=== PATIENT | male | born 1945 | race Caucasian/White ===

== ENCOUNTER 2021-04-11 09:03 | Inpatient (IN) | payer MEDICARE, OTHER ==
[2021-04-11 10:22] LABS: ALT (SGPT) 22 U/L (8-55); AST (SGOT) 23 U/L (5-34); Albumin 3.6 g/dL (3.4-4.8); Alkaline Phosphatase 60 U/L (40-110); Anion Gap 18 mmol/L (10-20); BUN (Urea Nitrogen) 21 mg/dL (8.4-25.7); Bilirubin, Total 0.6 mg/dL (0.2-1.2); Calc. Creatinine Clearance 0 mL/min (70-130); Carbon Dioxide 19 mmol/L (23-31); Chloride 106 mmol/L (98-107); Globulin 2.2 g/dL (2.4-3.5); Glucose 203 mg/dL (83-110); Potassium 4.3 mmol/L (3.5-5.1); Protein, Total 5.8 g/dL (5.8-8.1); Sodium 139 mmol/L (136-145)
[2021-04-11 10:29] LABS: #Lymphocytes 0.8 thou/uL (1.20-3.40); #Monocytes 0.7 thou/uL (0.11-0.59); #Neutrophils 14.2 thou/uL (1.40-6.50); %Basophils 0.1 % (0.0-1.0); %Eosinophils 0.2 % (0.0-10.0); %Monocytes 4.3 % (0.0-10.0); %Neutrophils 90.3 % (42.0-75.0); Band 31 % (5-11); Hemoglobin 11.2 g/dL (14.0-18.0); Lymphocytes 3 % (21-51); MDiff Complete? YES; Mean Corpuscular HGB CONC 33.1 g/dL (32.0-36.0); Mean Corpuscular Hemoglobin 32.3 pg (27.0-31.0); Mean Corpuscular Volume 97.8 fL (78.0-98.0); Mean Platelet Volume 9.9 fL (7.4-10.4); Monocytes 4 % (0-10); Neutrophil 62 % (42-75); Platelet Count 105 thou/uL (130-400); Platelet Morphology Comment Appears Decreased; RBC Distribution Width 14.2 % (11.5-14.5); RBC Morphology Normal; Red Blood Cell (RBC) Count 3.48 mill/uL (4.70-6.10); White Blood Cell (WBC) Count 15.7 thou/uL (4.8-10.8)
[2021-04-11] MEDS ORDERED: cefTRIAXone\\ROCEPHIN 2 GM VIAL ONE (11:14)
[2021-04-11] MEDS ORDERED: Cefepime 2 GM VIAL ONE (11:20)
[2021-04-11] MEDS ORDERED: Fentanyl 100 MCG/2 ML VIAL ONE ×2 (11:23→13:13)
[2021-04-11 12:09] LABS: Bilirubin Negative (Negative); Blood, Urine Negative (Negative); Clarity Clear (Clear); Glucose, Urine (Dipstick) Normal (Negative); Ketone, Urine Negative (Negative); Leukocyte Negative Leu/uL (Negative); Nitrite Negative (Negative); Protein, Urine (Dipstick) Negative (Neg-Trace); Specific Gravity, Urine 1.019 (1.002-1.036); Urobilinogen Normal mg/dL (Less than 2); pH, Urine 5.5 (5.0-9.0)
[2021-04-11] MEDS ORDERED: Clindamycin/D5W 900 MG in Premix Bag 1 BAG IVPB SCH (12:30)
[2021-04-11 13:19] LABS: Lactic Acid 4.2 mmol/L (0.5-2.2)
[2021-04-11] MEDS ORDERED: Dextrose 5% in Water 1,000 ML IV PRN (13:27)
[2021-04-11] MEDS ORDERED: hydrALAZINE 20 MG/ML VIAL SLOW IVP PRN (13:27)
[2021-04-11] MEDS ORDERED: Ondansetron PF 4 MG/2 ML Vial IVP PRN (13:27)
[2021-04-11] MEDS ORDERED: Dextrose 50% Abboject 50 ML SYRINGE SLOW IVP PRN (13:27)
[2021-04-11] MEDS ORDERED: traMADol HCl 50 MG TAB PO PRN (13:30)
[2021-04-11] MEDS ORDERED: Acetaminophen 325 MG TAB PO SCH (13:30)
[2021-04-11] MEDS ORDERED: VANCOMYCIN 2 GRAM/400 ML BAG 2 GM in Premix Bag 1 BAG IVPB SCH (14:00)
[2021-04-11 14:13] LABS: Troponin I Less than 0.010 ng/mL (< 0.028)
[2021-04-11] MEDS ORDERED: Hydrocortisone Sod Succ/PF 100 mg/2 ml Vial IVP SCH (14:15)
[2021-04-11] MEDS ORDERED: Calcium Chloride 1 GM/10 ML Abboject SYRINGE IVP SCH (14:15)
[2021-04-11] MEDS ORDERED: Calcium Chloride 13.6 MEQ in Sodium Chloride 0.9% 100 ML IVPB SCH (17:15)
[2021-04-11 17:47] LABS: Lactic Acid 3.3 mmol/L (0.5-2.2)
[2021-04-11] MEDS: Acetaminophen 500 MG TAB PO SCH ×2 (18:38→20:09)
[2021-04-11] MEDS: traMADol HCl 50 MG TAB PO SCH ×2 (18:45→23:31)
[2021-04-11 18:47] LABS: SARS-CoV-2 NAA Rapid Test Not Detected (NotDetected)
[2021-04-11] MEDS ORDERED: Albuterol Sulfate 2.5 mg/3 ml Neb NEB PRN (18:49)
[2021-04-11] MEDS: Senokot S 8.6-50 MG TAB PO SCH (20:09)
[2021-04-11] MEDS: Famotidine/PF 20 mg/2ml Vial SLOW IVP SCH (20:09)
[2021-04-11] MEDS: Sodium Chloride 0.9% 1,000 ML IV SCH (20:09)
[2021-04-11] MEDS ORDERED: Metoprolol Tartrate 50 MG TAB PO SCH (21:00)
[2021-04-11] MEDS: Hydrocortisone Sod Succ/PF 100 mg/2 ml Vial IVP SCH (22:22)
[2021-04-11] MEDS: Morphine 4 MG/ML VIAL SLOW IVP PRN (22:38)
[2021-04-12] MEDS: Acetaminophen 500 MG TAB PO SCH ×4 (02:50→21:36)
[2021-04-12 04:41] LABS: #Lymphocytes 0.7 thou/uL (1.20-3.40); #Monocytes 0.9 thou/uL (0.11-0.59); #Neutrophils 7.4 thou/uL (1.40-6.50); %Basophils 0.4 % (0.0-1.0); %Eosinophils 0.2 % (0.0-10.0); %Monocytes 9.4 % (0.0-10.0); %Neutrophils 81.9 % (42.0-75.0); Hemoglobin 7.9 g/dL (14.0-18.0); Mean Corpuscular Hemoglobin 33.1 pg (27.0-31.0); Mean Corpuscular Volume 97.2 fL (78.0-98.0); Mean Platelet Volume 9.3 fL (7.4-10.4); Platelet Count 96 thou/uL (130-400); Red Blood Cell (RBC) Count 2.39 mill/uL (4.70-6.10)
[2021-04-12 04:43] LABS: Anion Gap 12 mmol/L (10-20); BUN (Urea Nitrogen) 24 mg/dL (8.4-25.7); Calc. Creatinine Clearance 87 mL/min (70-130); Calcium 8.2 mg/dL (7.8-10.44); Carbon Dioxide 24 mmol/L (23-31); Chloride 109 mmol/L (98-107); Glucose 131 mg/dL (83-110); Magnesium 1.5 mg/dL (1.6-2.6); Phosphorus 2.7 mg/dL (2.3-4.7); Sodium 140 mmol/L (136-145)
[2021-04-12 04:48] LABS: Lactic Acid 1.9 mmol/L (0.5-2.2)
[2021-04-12 04:49] LABS: Troponin I Less than 0.010 ng/mL (< 0.028)
[2021-04-12 05:08] VITALS: BMI 29.9
[2021-04-12] MEDS ORDERED: Magnesium Sulfate 4 GM in Sodium Chloride 0.9% 250 ML 250 ML IVPB SCH (06:15)
[2021-04-12] MEDS: traMADol HCl 50 MG TAB PO SCH (06:25)
[2021-04-12] MEDS: Hydrocortisone Sod Succ/PF 100 mg/2 ml Vial IVP SCH ×3 (06:26→21:37)
[2021-04-12] MEDS: Sodium Chloride 0.9% 1,000 ML IV SCH (06:32)
[2021-04-12] MEDS: Mometasone 100 MCG/Formoterol 5 MCG 120 PUFF INHALER INH SCH ×2 (07:05→18:26)
[2021-04-12] MEDS: Morphine 4 MG/ML VIAL SLOW IVP PRN (07:21)
[2021-04-12] MEDS ORDERED: Magnesium Sulfate 4 GM in Sodium Chloride 0.9% 250 ML 250 ML IV SCH (09:00)
[2021-04-12] MEDS: Senokot S 8.6-50 MG TAB PO SCH ×2 (09:03→21:36)
[2021-04-12] MEDS: Bupropion 150 MG XL TAB PO SCH (09:03)
[2021-04-12] MEDS: Famotidine/PF 20 mg/2ml Vial SLOW IVP SCH ×2 (09:03→21:37)
[2021-04-12] MEDS: Tamsulosin HCl 0.4 MG CAP PO SCH (09:03)
[2021-04-12] MEDS: Polyethylene Glycol 3350 17 GM Packet PO SCH (09:04)
[2021-04-12] MEDS: Sodium Phosphate 15 MMOL in Sodium Chloride 0.9% 250 ML 250 ML IVPB SCH ×2 (09:10→12:31)
[2021-04-12] MEDS ORDERED: Furosemide 20 MG/2 ML VIAL SLOW IVP SCH (10:00)
[2021-04-12] MEDS ORDERED: Lorazepam 1 MG TAB PO PRN (11:33)
[2021-04-12] MEDS ORDERED: Lorazepam 1 MG TAB PO SCH ×2 (11:34→12:15)
[2021-04-12] MEDS ORDERED: Clindamycin/D5W 900 MG in Premix Bag 1 BAG IVPB SCH (13:00)
[2021-04-12] MEDS: Morphine ER 15 MG TAB PO SCH (21:39)
[2021-04-13] MEDS: Acetaminophen 500 MG TAB PO SCH ×4 (02:58→19:24)
[2021-04-13] MEDS: Hydrocortisone Sod Succ/PF 100 mg/2 ml Vial IVP SCH (05:21)
[2021-04-13] MEDS: Mometasone 100 MCG/Formoterol 5 MCG 120 PUFF INHALER INH SCH ×2 (06:55→21:27)
[2021-04-13 07:15] LABS: #Lymphocytes 0.6 thou/uL (1.20-3.40); #Monocytes 0.5 thou/uL (0.11-0.59); #Neutrophils 5.9 thou/uL (1.40-6.50); %Eosinophils 0.5 % (0.0-10.0); %Lymphocytes 8.6 % (21.0-51.0); %Neutrophils 83.9 % (42.0-75.0); Hemoglobin 7.5 g/dL (14.0-18.0); Mean Corpuscular HGB CONC 34.6 g/dL (32.0-36.0); Mean Corpuscular Hemoglobin 33.7 pg (27.0-31.0); Mean Corpuscular Volume 97.4 fL (78.0-98.0); Mean Platelet Volume 9.8 fL (7.4-10.4); Platelet Count 87 thou/uL (130-400); RBC Distribution Width 14.2 % (11.5-14.5); Red Blood Cell (RBC) Count 2.23 mill/uL (4.70-6.10); White Blood Cell (WBC) Count 7.1 thou/uL (4.8-10.8)
[2021-04-13 07:34] LABS: Anion Gap 10 mmol/L (10-20); BUN (Urea Nitrogen) 22 mg/dL (8.4-25.7); Calc. Creatinine Clearance 124 mL/min (70-130); Calcium 8.1 mg/dL (7.8-10.44); Carbon Dioxide 26 mmol/L (23-31); Chloride 106 mmol/L (98-107); Glucose 100 mg/dL (83-110); Magnesium 2.2 mg/dL (1.6-2.6); Phosphorus 2.2 mg/dL (2.3-4.7); Potassium 4.1 mmol/L (3.5-5.1); Sodium 138 mmol/L (136-145)
[2021-04-13] MEDS: metFORMIN 500 MG TAB PO SCH (08:32)
[2021-04-13] MEDS: Morphine ER 15 MG TAB PO SCH (10:00)
[2021-04-13] MEDS: Bupropion 150 MG XL TAB PO SCH (10:53)
[2021-04-13] MEDS: Furosemide 20 MG TAB PO SCH (10:54)
[2021-04-13] MEDS: Tamsulosin HCl 0.4 MG CAP PO SCH (10:55)
[2021-04-13] MEDS: Polyethylene Glycol 3350 17 GM Packet PO SCH (10:55)
[2021-04-13] MEDS: Senokot S 8.6-50 MG TAB PO SCH ×2 (10:55→19:23)
[2021-04-13] MEDS: Ketorolac Tromethamine 30 MG/ML VIAL IVP SCH ×2 (10:59→17:37)
[2021-04-13] MEDS ORDERED: Clindamycin/D5W 900 mg/50 ml Premix Bag ONE (13:25)
[2021-04-13] MEDS ORDERED: Fentanyl 100 MCG/2 ML VIAL ONE ×2 (14:24→17:12)
[2021-04-13] MEDS ORDERED: Glycopyrrolate 0.2 MG/ML 5 ML SYRINGE ONE (14:24)
[2021-04-13] MEDS ORDERED: Ketamine 50 MG/ML (10ML VIAL) ONE (14:26)
[2021-04-13] MEDS ORDERED: Propofol 1,000 MG/100 ML VIAL IV ONE (15:45)
[2021-04-13] MEDS ORDERED: Morphine ER 15 MG TAB PO PRN (17:43)
[2021-04-13] MEDS: Clindamycin/D5W 900 MG in Premix Bag 1 BAG IVPB SCH (19:24)
[2021-04-14] MEDS: Acetaminophen 500 MG TAB PO SCH ×4 (02:26→20:28)
[2021-04-14] MEDS: Clindamycin/D5W 900 MG in Premix Bag 1 BAG IVPB SCH (05:08)
[2021-04-14 05:40] LABS: #Lymphocytes 0.4 thou/uL (1.20-3.40); #Monocytes 0.6 thou/uL (0.11-0.59); #Neutrophils 6.4 thou/uL (1.40-6.50); %Eosinophils 0.2 % (0.0-10.0); %Lymphocytes 4.8 % (21.0-51.0); %Monocytes 8.1 % (0.0-10.0); %Neutrophils 86.9 % (42.0-75.0); Hemoglobin 6.6 g/dL (14.0-18.0); Mean Corpuscular HGB CONC 34.9 g/dL (32.0-36.0); Mean Corpuscular Hemoglobin 33.7 pg (27.0-31.0); Mean Corpuscular Volume 96.5 fL (78.0-98.0); Platelet Count 95 thou/uL (130-400); RBC Distribution Width 14.2 % (11.5-14.5); Red Blood Cell (RBC) Count 1.97 mill/uL (4.70-6.10); White Blood Cell (WBC) Count 7.3 thou/uL (4.8-10.8)
[2021-04-14 05:50] LABS: Phosphorus 2.7 mg/dL (2.3-4.7)
[2021-04-14 06:08] LABS: Anion Gap 11 mmol/L (10-20); BUN (Urea Nitrogen) 25 mg/dL (8.4-25.7); Calc. Creatinine Clearance 130 mL/min (70-130); Calcium 8.1 mg/dL (7.8-10.44); Carbon Dioxide 24 mmol/L (23-31); Chloride 106 mmol/L (98-107); Glucose 136 mg/dL (83-110); Potassium 4.4 mmol/L (3.5-5.1); Sodium 137 mmol/L (136-145)
[2021-04-14] MEDS: Mometasone 100 MCG/Formoterol 5 MCG 120 PUFF INHALER INH SCH ×2 (06:43→18:17)
[2021-04-14] MEDS: Polyethylene Glycol 3350 17 GM Packet PO SCH (07:44)
[2021-04-14] MEDS: metFORMIN 500 MG TAB PO SCH (07:45)
[2021-04-14] MEDS: Senokot S 8.6-50 MG TAB PO SCH ×2 (07:46→20:29)
[2021-04-14] MEDS: Bupropion 150 MG XL TAB PO SCH (07:46)
[2021-04-14] MEDS: Furosemide 20 MG TAB PO SCH (07:46)
[2021-04-14] MEDS: Tamsulosin HCl 0.4 MG CAP PO SCH (07:48)
[2021-04-14] MEDS: Gabapentin 100 MG CAP PO SCH ×2 (13:43→20:28)
[2021-04-14 15:22] LABS: Band 11 % (5-11); Hemoglobin 8.4 g/dL (14.0-18.0); Lymphocytes 6 % (21-51); MDiff Complete? YES; Mean Corpuscular HGB CONC 33.4 g/dL (32.0-36.0); Mean Corpuscular Hemoglobin 31.6 pg (27.0-31.0); Mean Corpuscular Volume 94.6 fL (78.0-98.0); Mean Platelet Volume 10.2 fL (7.4-10.4); Monocytes 9 % (0-10); Neutrophil 74 % (42-75); Platelet Count 125 thou/uL (130-400); Platelet Morphology Comment Appears Decreased; Polychromasia SLIGHT = 2-3 cells (100X) (0-2/hpf); RBC Distribution Width 18.2 % (11.5-14.5); Red Blood Cell (RBC) Count 2.66 mill/uL (4.70-6.10); Target Cells SLIGHT = 2-5 cells (100X) (0-1/hpf); White Blood Cell (WBC) Count 10.6 thou/uL (4.8-10.8)
[2021-04-14] MEDS: Ferrous Sulfate 325 MG TAB PO SCH (16:42)
[2021-04-14] MEDS: Ascorbic Acid 500 mg Chewable Tablet PO SCH (20:28)
[2021-04-14] MEDS ORDERED: Senokot S 8.6-50 MG TAB PO SCH (21:00)
[2021-04-15] MEDS: Acetaminophen 500 MG TAB PO SCH ×3 (02:33→15:54)
[2021-04-15] MEDS: metFORMIN 500 MG TAB PO SCH (07:57)
[2021-04-15] MEDS ORDERED: Ondansetron PF 4 MG/2 ML Vial IVP PRN (07:57)
[2021-04-15] MEDS ORDERED: Scopolamine 1.5 mg/72 hour Patch TD SCH (09:00)
[2021-04-15] MEDS ORDERED: Polyethylene Glycol 3350 17 GM Packet PO SCH (09:00)
[2021-04-15] MEDS ORDERED: Clopidogrel Bisulfate 75 MG TAB PO SCH (09:00)
[2021-04-15] MEDS: Senokot S 8.6-50 MG TAB PO SCH (09:06)
[2021-04-15] MEDS: Tamsulosin HCl 0.4 MG CAP PO SCH (09:06)
[2021-04-15] MEDS: Furosemide 20 MG TAB PO SCH (09:06)
[2021-04-15] MEDS: Ferrous Sulfate 325 MG TAB PO SCH (09:06)
[2021-04-15] MEDS: Ascorbic Acid 500 mg Chewable Tablet PO SCH (09:06)
[2021-04-15] MEDS: Gabapentin 100 MG CAP PO SCH ×2 (09:06→15:54)
[2021-04-15] MEDS: Bupropion 150 MG XL TAB PO SCH (09:07)
[2021-04-15] MEDS: Polyethylene Glycol 3350 17 GM Packet PO SCH (09:07)
[2021-04-15] MEDS ORDERED: Bisacodyl 10 MG SUPP PR PRN (10:06)
[2021-04-15] MEDS ORDERED: Furosemide 20 MG/2 ML VIAL SLOW IVP SCH (11:15)
[2021-04-15] MEDS: Mometasone 100 MCG/Formoterol 5 MCG 120 PUFF INHALER INH SCH (12:09)
[2021-04-15 12:37] VITALS: TEMP 98.4
[2021-04-15 16:51] VITALS: BP 134/71
== END 2021-04-15 18:10 | DRG 493 ==
LOC: ERS 09:03 → ERHOLD 13:27 → SURG B 18:37 → 2NO 04-12 05:00 → SURG B 04-12 22:47 → SURG A 04-14 16:56
PROVIDERS: ADMIT Surgery; ATTEND Surgery
PROC: 0QSJ34Z Reposition Right Fibula with Internal Fixation Device, Percutaneous Approach (ICD-10-PCS; principal; 2021-04-13)
PROC: 30233N1 Transfusion of Nonautologous Red Blood Cells into Peripheral Vein, Percutaneous Approach (ICD-10-PCS; 2021-04-14)
DX: S82.191A Other fracture of upper end of right tibia, initial encounter for closed fracture (principal); E87.2 Acidosis; N17.9 Acute kidney failure, unspecified; D62 Acute posthemorrhagic anemia; W19.XXXA Unspecified fall, initial encounter; I10 Essential (primary) hypertension; I25.10 Atherosclerotic heart disease of native coronary artery without angina pectoris; J45.909 Unspecified asthma, uncomplicated; G40.909 Epilepsy, unspecified, not intractable, without status epilepticus; E11.42 Type 2 diabetes mellitus with diabetic polyneuropathy; G89.29 Other chronic pain; E86.0 Dehydration; Z20.822 Contact with and (suspected) exposure to COVID-19; N40.0 Benign prostatic hyperplasia without lower urinary tract symptoms; Y92.009 Unspecified place in unspecified non-institutional (private) residence as the place of occurrence of the external cause; Z95.1 Presence of aortocoronary bypass graft; Z79.82 Long term (current) use of aspirin; Z79.899 Other long term (current) drug therapy; Z88.8 Allergy status to other drugs, medicaments and biological substances; Z88.0 Allergy status to penicillin; Z88.2 Allergy status to sulfonamides; Z91.013 Allergy to seafood
CPT/HCPCS: 36415; 36416; 36430; 70450; 71045; 76000; 80048; 80053; 80164; 81003; 82533; 82550; 83605; 83735; 83880; 84100; 84145; 84146; 84443; 84484; 85025; 86850; 86900; 86901; 87040; 87086; 87149; 93005; 93010; 93306; 93880; 94640; C1713; G0390; J0692; J0696; J1720; J1885; J1940; J2270; J2405; J2704; J3010; J3370; J3475; J3490; J7050; J7620; P9016; S0028; U0002

== ENCOUNTER 2021-06-05 16:25 | Inpatient (IN) | payer MEDICARE ==
[2021-06-05] MEDS ORDERED: Norepinephrine 8 MG/0.9% NS 250 ML ONE (16:31)
[2021-06-05 16:56] LABS: Actual Bicarbonate (HCO3a) 19.6 mEq/L (22-28); Analyzer IN Cardio ER; Base Excess (BEa) -4.2 mEq/L (-2.0 to +3.0); CO2 Tension 31.7 mmHg (35.0-45.0); Calcium, Ionized (arterial) 1.09 mmol/L (1.12-1.30); Carboxyhemoglobin (COHb) 0.2 gm% (0.0-3.0); O2 Tension (PaO2), arterial 135.2 mmHg (> 70.0); Potassium - ABG Lab 3.95 mmol/L (3.70-5.30); pH, Arterial 7.41 (7.35-7.45)
[2021-06-05 17:02] LABS: Puncture Site RRA
[2021-06-05 17:03] LABS: ALV-art Gradient 146.025 mmHg (0-20)
[2021-06-05] MEDS ORDERED: Cefepime 2 GM VIAL ONE (17:07)
[2021-06-05 17:56] LABS: Troponin I 0.031 ng/mL (< 0.028)
[2021-06-05] MEDS ORDERED: VANCOMYCIN 2 GRAM/400 ML BAG 2 GM in Premix Bag 1 BAG IVPB SCH (18:00)
[2021-06-05] MEDS ORDERED: fentaNYL Citrate-0.9 % NaCl/PF 100 ML IV SCH ×2 (18:00→20:15)
[2021-06-05] MEDS ORDERED: Aspirin 300 MG Suppository ONE (18:33)
[2021-06-05] MEDS ORDERED: Morphine 4 MG/ML VIAL SLOW IVP PRN ×2 (19:36→20:07)
[2021-06-05] MEDS ORDERED: Fentanyl BOLUS 250 ML IVPB PRN ×2 (19:45→20:15)
[2021-06-05] MEDS ORDERED: Propofol 1,000 MG/100 ML VIAL IV PRN ×2 (19:45→20:15)
[2021-06-05] MEDS ORDERED: FENTANYL CITRATE IVPB SCH (19:45)
[2021-06-05] MEDS ORDERED: NACL IVPB SCH (19:45)
[2021-06-05] MEDS ORDERED: Propofol BOLUS 1,000 MG/100 ML VIAL IV PRN ×2 (19:45→20:15)
[2021-06-05] MEDS ORDERED: Lorazepam 2 MG/ML VIAL SLOW IVP PRN ×2 (19:45→20:15)
[2021-06-05] MEDS ORDERED: DISCONTINUE PREVIOUS NARCOTIC PAIN MEDICATIONS AND BENZODIAZEPINES FS SCH ×2 (19:45→20:15)
[2021-06-05] MEDS ORDERED: Electrolyte Replacement Protocol 1 EACH IVPB ONE (19:49)
[2021-06-05] MEDS ORDERED: Ondansetron PF 4 MG/2 ML Vial IVP PRN (19:49)
[2021-06-05] MEDS ORDERED: Ondansetron ODT 4 MG TAB PO PRN (19:49)
[2021-06-05] MEDS ORDERED: Acetaminophen 650 MG Suppository PR PRN (19:49)
[2021-06-05] MEDS ORDERED: Norepinephrine 8 MG/0.9% NS 250 ML IVPB SCH (20:00)
[2021-06-05] MEDS ORDERED: Ventilator Sedation Protocol 1 EACH FS SCH (20:00)
[2021-06-05] MEDS ORDERED: Electrolyte Replacement Protocol FS PRN (20:15)
[2021-06-05 20:24] LABS: Troponin I 0.034 ng/mL (< 0.028)
[2021-06-05] MEDS ORDERED: FLU VACC QS2021-22(65YR UP)/PF 240 MCG/0.7 ML SYRINGE IM ONE (20:45)
[2021-06-05] MEDS ORDERED: Sodium Chloride 0.9% 500 ML IV SCH (22:45)
[2021-06-05] MEDS ORDERED: Dextrose 50% Abboject 50 ML SYRINGE SLOW IVP PRN (22:48)
[2021-06-05] MEDS ORDERED: Dextrose 5% in Water 1,000 ML IV PRN (22:48)
[2021-06-05] MEDS ORDERED: HumaLOG 300 UNITS/3 ML VIAL SC PRN ×2 (22:48)
[2021-06-05] MEDS: Sodium Chloride 0.9% 1,000 ML IV SCH (23:11)
[2021-06-06 00:22] LABS: Troponin I 0.039 ng/mL (< 0.028)
[2021-06-06 04:14] LABS: #Eosinphils 0.1 thou/uL (0.0-0.7); #Lymphocytes 1.1 thou/uL (1.20-3.40); #Monocytes 1.1 thou/uL (0.11-0.59); #Neutrophils 10.2 thou/uL (1.40-6.50); %Basophils 0.3 % (0.0-1.0); %Eosinophils 0.5 % (0.0-10.0); %Lymphocytes 8.9 % (21.0-51.0); %Monocytes 8.9 % (0.0-10.0); %Neutrophils 81.4 % (42.0-75.0); Hemoglobin 9.7 g/dL (14.0-18.0); Mean Corpuscular HGB CONC 32.4 g/dL (32.0-36.0); Mean Corpuscular Hemoglobin 31.5 pg (27.0-31.0); Mean Corpuscular Volume 97.1 fL (78.0-98.0); Platelet Count 119 thou/uL (130-400); RBC Distribution Width 16.9 % (11.5-14.5); Red Blood Cell (RBC) Count 3.09 mill/uL (4.70-6.10); White Blood Cell (WBC) Count 12.5 thou/uL (4.8-10.8)
[2021-06-06 04:48] LABS: Anion Gap 12 mmol/L (10-20); BUN (Urea Nitrogen) 46 mg/dL (8.4-25.7); Calc. Creatinine Clearance 73 mL/min (70-130); Calcium 8.1 mg/dL (7.8-10.44); Carbon Dioxide 21 mmol/L (23-31); Cardiac Risk 3.5 (Less than 4.5); Chloride 108 mmol/L (98-107); Cholesterol 106 mg/dl (< 200 Desired); Glucose 69 mg/dL (83-110); HDL Cholesterol 30 mg/dL (>60 Neg Risk); LDL Cholesterol, Calculated 57 mg/dL; Potassium 3.8 mmol/L (3.5-5.1); Sodium 137 mmol/L (136-145); Triglycerides 93 mg/dL (Less than 150)
[2021-06-06] MEDS: Cefepime 2 GM in Sodium Chloride 0.9% 100 ML IVPB SCH ×2 (05:39→22:08)
[2021-06-06] MEDS ORDERED: Cefepime 2 GM in Sodium Chloride 0.9% 100 ML IVPB SCH (06:00)
[2021-06-06] MEDS ORDERED: Aspirin 81 mg Enteric Coated Tablet PO SCH (09:00)
[2021-06-06] MEDS: Sodium Chloride 0.9% 1,000 ML IV SCH ×3 (09:56→23:04)
[2021-06-06] MEDS: Famotidine/PF 20 mg/2ml Vial SLOW IVP SCH (19:33)
[2021-06-06] MEDS: Enoxaparin Sodium 40 MG/0.4 ML SYRINGE SC SCH (19:33)
[2021-06-06] MEDS: VANCOMYCIN 2 GRAM/400 ML BAG 2 GM in Premix Bag 1 BAG IVPB SCH (20:28)
[2021-06-07 04:13] LABS: #Eosinphils 0.1 thou/uL (0.0-0.7); #Lymphocytes 0.8 thou/uL (1.20-3.40); #Monocytes 0.7 thou/uL (0.11-0.59); #Neutrophils 5.7 thou/uL (1.40-6.50); %Basophils 0.2 % (0.0-1.0); %Lymphocytes 10.6 % (21.0-51.0); %Monocytes 10.1 % (0.0-10.0); %Neutrophils 78.2 % (42.0-75.0); Hemoglobin 8.8 g/dL (14.0-18.0); Mean Corpuscular HGB CONC 32.5 g/dL (32.0-36.0); Mean Corpuscular Hemoglobin 31.7 pg (27.0-31.0); Mean Corpuscular Volume 97.6 fL (78.0-98.0); Mean Platelet Volume 9.9 fL (7.4-10.4); Platelet Count 100 thou/uL (130-400); RBC Distribution Width 16.6 % (11.5-14.5); Red Blood Cell (RBC) Count 2.78 mill/uL (4.70-6.10); White Blood Cell (WBC) Count 7.3 thou/uL (4.8-10.8)
[2021-06-07 04:30] LABS: Anion Gap 10 mmol/L (10-20); BUN (Urea Nitrogen) 27 mg/dL (8.4-25.7); CRP (Inflammatory) 5.06 mg/dL (= or < 0.5); Calc. Creatinine Clearance 131 mL/min (70-130); Calcium 8.2 mg/dL (7.8-10.44); Carbon Dioxide 21 mmol/L (23-31); Chloride 112 mmol/L (98-107); Glucose 72 mg/dL (83-110); Potassium 3.4 mmol/L (3.5-5.1); Sodium 140 mmol/L (136-145)
[2021-06-07] MEDS ORDERED: Potassium Chloride 40 MEQ in Premix Bag 1 BAG IVPB SCH (05:45)
[2021-06-07] MEDS: Cefepime 2 GM in Sodium Chloride 0.9% 100 ML IVPB SCH ×2 (06:11→17:18)
[2021-06-07] MEDS: Acetaminophen 325 MG TAB PO PRN ×2 (09:43→22:03)
[2021-06-07] MEDS: Sodium Chloride 0.9% 1,000 ML IV SCH ×2 (09:43→17:18)
[2021-06-07] MEDS: Famotidine/PF 20 mg/2ml Vial SLOW IVP SCH (09:44)
[2021-06-07] MEDS: Aspirin Chewable 81 MG TAB PO SCH (09:44)
[2021-06-07] MEDS: VANCOMYCIN 2 GRAM/400 ML BAG 2 GM in Premix Bag 1 BAG IVPB SCH (17:52)
[2021-06-07] MEDS: Enoxaparin Sodium 40 MG/0.4 ML SYRINGE SC SCH (22:05)
[2021-06-07] MEDS: Famotidine 20 MG TAB PO SCH (22:05)
[2021-06-08] MEDS: Sodium Chloride 0.9% 1,000 ML IV SCH ×3 (05:51→15:36)
[2021-06-08] MEDS: Cefepime 2 GM in Sodium Chloride 0.9% 100 ML IVPB SCH ×2 (05:52→17:02)
[2021-06-08 07:40] LABS: #Eosinphils 0.1 thou/uL (0.0-0.7); #Lymphocytes 0.7 thou/uL (1.20-3.40); #Monocytes 0.6 thou/uL (0.11-0.59); #Neutrophils 5.3 thou/uL (1.40-6.50); %Basophils 0.4 % (0.0-1.0); %Eosinophils 2.1 % (0.0-10.0); %Lymphocytes 9.9 % (21.0-51.0); %Monocytes 8.7 % (0.0-10.0); %Neutrophils 78.8 % (42.0-75.0); Hemoglobin 11.1 g/dL (14.0-18.0); Mean Corpuscular HGB CONC 31.8 g/dL (32.0-36.0); Mean Corpuscular Hemoglobin 31.7 pg (27.0-31.0); Mean Corpuscular Volume 99.8 fL (78.0-98.0); Mean Platelet Volume 9.9 fL (7.4-10.4); Platelet Count 115 thou/uL (130-400); RBC Distribution Width 16.6 % (11.5-14.5); Red Blood Cell (RBC) Count 3.52 mill/uL (4.70-6.10); White Blood Cell (WBC) Count 6.8 thou/uL (4.8-10.8)
[2021-06-08 07:54] LABS: ALT (SGPT) 11 U/L (8-55); AST (SGOT) 22 U/L (5-34); Albumin 2.7 g/dL (3.4-4.8); Alkaline Phosphatase 70 U/L (40-110); Anion Gap 13 mmol/L (10-20); BUN (Urea Nitrogen) 15 mg/dL (8.4-25.7); Bilirubin, Total 0.5 mg/dL (0.2-1.2); Calc. Creatinine Clearance 160 mL/min (70-130); Calcium 8.2 mg/dL (7.8-10.44); Carbon Dioxide 18 mmol/L (23-31); Chloride 111 mmol/L (98-107); Globulin 2.2 g/dL (2.4-3.5); Glucose 79 mg/dL (83-110); Magnesium 1.5 mg/dL (1.6-2.6); Potassium 3.5 mmol/L (3.5-5.1); Protein, Total 4.9 g/dL (5.8-8.1); Sodium 138 mmol/L (136-145)
[2021-06-08] MEDS ORDERED: Magnesium 2 GM/50 ML 2 GM in Premix Bag 1 BAG IVPB SCH (08:30)
[2021-06-08] MEDS ORDERED: Potassium Chloride 20 MEQ TAB PO SCH (08:30)
[2021-06-08] MEDS: Aspirin Chewable 81 MG TAB PO SCH (09:24)
[2021-06-08] MEDS: Famotidine 20 MG TAB PO SCH ×2 (09:25→20:15)
[2021-06-08] MEDS: Acetaminophen 325 MG TAB PO PRN ×2 (09:28→20:16)
[2021-06-08 13:57] VITALS: BMI 27.6
[2021-06-08 17:28] LABS: Vancomycin, Trough 11.9 ug/mL
[2021-06-08] MEDS: Enoxaparin Sodium 40 MG/0.4 ML SYRINGE SC SCH (20:15)
[2021-06-09] MEDS: Cefepime 2 GM in Sodium Chloride 0.9% 100 ML IVPB SCH (05:14)
[2021-06-09] MEDS: Aspirin Chewable 81 MG TAB PO SCH (08:03)
[2021-06-09] MEDS: Famotidine 20 MG TAB PO SCH (08:04)
[2021-06-09 09:32] VITALS: BP 158/80; TEMP 97.7
== END 2021-06-09 15:28 | DRG 698 ==
LOC: ERS 16:25 → CCU 19:22 → T4-B 06-07 18:53
PROVIDERS: ADMIT Internal Medicine; ATTEND Hospitalist
PROC: 0D9670Z Drainage of Stomach with Drainage Device, Via Natural or Artificial Opening (ICD-10-PCS; principal; 2021-06-05)
PROC: 0BH17EZ Insertion of Endotracheal Airway into Trachea, Via Natural or Artificial Opening (ICD-10-PCS; 2021-06-05)
PROC: 5A1935Z Respiratory Ventilation, Less than 24 Consecutive Hours (ICD-10-PCS; 2021-06-05)
PROC: 06HY33Z Insertion of Infusion Device into Lower Vein, Percutaneous Approach (ICD-10-PCS; 2021-06-05)
PROC: 3E033XZ Introduction of Vasopressor into Peripheral Vein, Percutaneous Approach (ICD-10-PCS; 2021-06-05)
PROC: 0T2BX0Z Change Drainage Device in Bladder, External Approach (ICD-10-PCS; 2021-06-06)
DX: T83.511A Infection and inflammatory reaction due to indwelling urethral catheter, initial encounter (principal); A41.51 Sepsis due to Escherichia coli [E. coli]; R65.21 Severe sepsis with septic shock; J96.01 Acute respiratory failure with hypoxia; G92.8 Other toxic encephalopathy; N39.0 Urinary tract infection, site not specified; Z20.822 Contact with and (suspected) exposure to COVID-19; I10 Essential (primary) hypertension; E11.9 Type 2 diabetes mellitus without complications; I25.10 Atherosclerotic heart disease of native coronary artery without angina pectoris; J45.909 Unspecified asthma, uncomplicated; G40.909 Epilepsy, unspecified, not intractable, without status epilepticus; F03.90 Unspecified dementia, unspecified severity, without behavioral disturbance, psychotic disturbance, mood disturbance, and anxiety; M19.90 Unspecified osteoarthritis, unspecified site; E66.9 Obesity, unspecified; F32.A Depression, unspecified; N40.0 Benign prostatic hyperplasia without lower urinary tract symptoms; G93.89 Other specified disorders of brain; Y84.6 Urinary catheterization as the cause of abnormal reaction of the patient, or of later complication, without mention of misadventure at the time of the procedure; Z91.041 Radiographic dye allergy status; Z88.8 Allergy status to other drugs, medicaments and biological substances; Z88.0 Allergy status to penicillin; Z88.2 Allergy status to sulfonamides; Z88.7 Allergy status to serum and vaccine; Z78.1 Physical restraint status; Z98.890 Other specified postprocedural states; Z95.1 Presence of aortocoronary bypass graft; Z68.27 Body mass index [BMI] 27.0-27.9, adult; Z91.81 History of falling; Z79.82 Long term (current) use of aspirin; Z79.84 Long term (current) use of oral hypoglycemic drugs; Z79.51 Long term (current) use of inhaled steroids; Z79.02 Long term (current) use of antithrombotics/antiplatelets; Z91.013 Allergy to seafood; Z79.899 Other long term (current) drug therapy
CPT/HCPCS: 36415; 36416; 36600; 71045; 74018; 80048; 80053; 80061; 80202; 82805; 83605; 83735; 85025; 86140; 93005; 93306; 94002; 94003; 95712; 95819; 95957; J0692; J1650; J2704; J3370; J3475; J3480; J3490; J7030; J7050; S0028

== ENCOUNTER 2021-07-03 14:23 | Inpatient (IN) | payer MEDICARE ==
[~2021-07-03 14:23] MED LIST: Iopamidol 370 76% 100 ML VIAL ONE
[2021-07-03] MEDS ORDERED: Fentanyl 100 MCG/2 ML VIAL ONE ×2 (14:46→17:27)
[2021-07-03 14:55] LABS: #Eosinphils 0.1 thou/uL (0.0-0.7); #Lymphocytes 0.8 thou/uL (1.20-3.40); #Monocytes 1.4 thou/uL (0.11-0.59); #Neutrophils 12.2 thou/uL (1.40-6.50); %Basophils 0.1 % (0.0-1.0); %Eosinophils 0.5 % (0.0-10.0); %Lymphocytes 5.4 % (21.0-51.0); %Monocytes 9.8 % (0.0-10.0); %Neutrophils 84.3 % (42.0-75.0); Mean Corpuscular HGB CONC 30.7 g/dL (32.0-36.0); Mean Corpuscular Hemoglobin 31.2 pg (27.0-31.0); Mean Platelet Volume 8.7 fL (7.4-10.4); Platelet Count 228 thou/uL (130-400); RBC Distribution Width 16.1 % (11.5-14.5); Red Blood Cell (RBC) Count 3.52 mill/uL (4.70-6.10); White Blood Cell (WBC) Count 14.5 thou/uL (4.8-10.8)
[2021-07-03 15:15] LABS: ALT (SGPT) 11 U/L (8-55); AST (SGOT) 14 U/L (5-34); Albumin 2.8 g/dL (3.4-4.8); Alkaline Phosphatase 65 U/L (40-110); Anion Gap 18 mmol/L (10-20); BUN (Urea Nitrogen) 18 mg/dL (8.4-25.7); Bilirubin, Total 0.5 mg/dL (0.2-1.2); Calc. Creatinine Clearance 0 mL/min (70-130); Calcium 9.2 mg/dL (7.8-10.44); Carbon Dioxide 20 mmol/L (23-31); Chloride 102 mmol/L (98-107); Globulin 2.7 g/dL (2.4-3.5); Glucose 92 mg/dL (83-110); Potassium 3.6 mmol/L (3.5-5.1); Protein, Total 5.5 g/dL (5.8-8.1); Sodium 136 mmol/L (136-145)
[2021-07-03 16:34] LABS: Bilirubin Negative (Negative); Blood, Urine 2+ (Negative); Clarity Turbid (Clear); Glucose, Urine (Dipstick) Normal (Negative); Ketone, Urine 40 mg/dL (Negative); Leukocyte 500 Leu/uL (Negative); Nitrite Negative (Negative); Protein, Urine (Dipstick) 100 mg/dL (Neg-Trace); RBC/HPF Greater than 50 HPF (0-3); Specific Gravity, Urine 1.036 (1.002-1.036); Squamous Epithelial 0-3 HPF (0-3); Urobilinogen Normal mg/dL (Less than 2); WBC/HPF Greater than 50 HPF (0-3); pH, Urine 6.5 (5.0-9.0)
[2021-07-03 16:35] LABS: Bacteria/HPF 1+ HPF (None Seen)
[2021-07-03] MEDS ORDERED: cefTRIAXone\\ROCEPHIN 2 GM VIAL ONE (17:29)
[2021-07-03] MEDS ORDERED: Acetaminophen 325 MG TAB PO PRN (18:51)
[2021-07-03] MEDS ORDERED: Acetaminophen 650 MG Suppository PR PRN (18:51)
[2021-07-03] MEDS ORDERED: Vancomycin 1 GM/200 ML BAG ONE (18:53)
[2021-07-03] MEDS ORDERED: Lactated Ringer's 1,000 ML IV SCH (19:00)
[2021-07-03 19:47] LABS: Magnesium 1.3 mg/dL (1.6-2.6)
[2021-07-03 19:51] LABS: Phosphorus 1.9 mg/dL (2.3-4.7)
[2021-07-03] MEDS ORDERED: Electrolyte Replacement Protocol 1 EACH FS SCH (20:45)
[2021-07-03] MEDS ORDERED: Magnesium 2 GM/50 ML 2 GM in Premix Bag 1 BAG IVPB SCH (20:45)
[2021-07-03] MEDS ORDERED: Magnesium Sulfate 2 GM in Sodium Chloride 0.9% 100 ML IVPB SCH (20:45)
[2021-07-03] MEDS ORDERED: Vancomycin 1 GM in Premix Bag 1 BAG IVPB SCH ×2 (21:00→22:30)
[2021-07-03] MEDS ORDERED: Sodium Phosphate 30 MMOL in Sodium Chloride 0.9% 250 ML 250 ML IVPB SCH (21:00)
[2021-07-03] MEDS ORDERED: D5W-AA 4.25% with LYTES 1,000 ML IV SCH (21:00)
[2021-07-03] MEDS ORDERED: HumaLOG 300 UNITS/3 ML VIAL SC PRN (21:32)
[2021-07-03] MEDS ORDERED: Dextrose 5% in Water 1,000 ML IV PRN (21:32)
[2021-07-03] MEDS ORDERED: Dextrose 50% Abboject 50 ML SYRINGE SLOW IVP PRN (21:32)
[2021-07-03] MEDS ORDERED: Albuterol 200 PUFF (6.7GM INHALER) INH PRN (21:46)
[2021-07-03 21:54] LABS: Hemoglobin A1c 4.4 % (4.0-6.0)
[2021-07-03] MEDS: Cefepime 2 GM in Sodium Chloride 0.9% 100 ML IVPB SCH (22:47)
[2021-07-04 00:08] VITALS: BMI 22.1
[2021-07-04] MEDS ORDERED: Mometasone 100 MCG/Formoterol 5 MCG 120 PUFF INHALER INH SCH (06:30)
[2021-07-04] MEDS ORDERED: Calcium Carbonate 600 MG + Vit D TAB PO SCH (08:00)
[2021-07-04] MEDS ORDERED: Ferrous Sulfate 325 MG TAB PO SCH (08:00)
[2021-07-04] MEDS ORDERED: Bupropion 150 MG XL TAB PO SCH (09:00)
[2021-07-04] MEDS ORDERED: Non-Formulary Item 1 EACH (Argin/Glut/Cahmb/Collag/Mv-Min [Juven Packet] 1 EACH Powd.Pack PO SCH (09:00)
[2021-07-04] MEDS ORDERED: Clopidogrel Bisulfate 75 MG TAB PO SCH (09:00)
[2021-07-04] MEDS ORDERED: Amino Acids 4.25 %/Dextrose 5% 2,000 ML BAG IV SCH (09:00)
[2021-07-04] MEDS ORDERED: VANCOMYCIN 1.25 GM/250 ML BAG 1.25 GM in Premix Bag 1 BAG IVPB SCH (09:00)
[2021-07-04] MEDS ORDERED: Finasteride 5 MG TAB PO SCH (09:00)
[2021-07-04] MEDS ORDERED: Ascorbic Acid 500 mg Chewable Tablet PO SCH (09:00)
[2021-07-04] MEDS ORDERED: Enoxaparin Sodium 40 MG/0.4 ML SYRINGE SC SCH (09:00)
[2021-07-04] MEDS ORDERED: Senokot S 8.6-50 MG TAB PO SCH (09:00)
[2021-07-04] MEDS ORDERED: Gabapentin 300 MG CAP PO SCH (09:00)
[2021-07-04] MEDS ORDERED: Saccharomyces boulardii 250 MG CAP PO SCH (09:00)
[2021-07-04] MEDS: Zinc Sulfate 220 MG CAP PO SCH ×2 (09:13→09:22)
[2021-07-04] MEDS: Cefepime 2 GM in Sodium Chloride 0.9% 100 ML IVPB SCH (09:15)
[2021-07-04] MEDS ORDERED: AA 4.25 %/CALCIUM/LYTES/D5W 2,000 ML IV SCH (15:30)
[2021-07-04] MEDS ORDERED: Morphine 4 MG/ML VIAL SLOW IVP PRN (16:40)
[2021-07-04 17:51] VITALS: BP 140/60; TEMP 98.1
[2021-07-04] MEDS ORDERED: oxyCODONE 5 MG TAB PO PRN (18:16)
[2021-07-04] MEDS ORDERED: Melatonin 3 MG TAB PO SCH (21:00)
== END 2021-07-04 18:50 | disposition hospice, inpatient (51) | DRG 698 ==
LOC: ERS 14:23 → ERHOLD 17:15 → OBSVTOIN 17:15 → 2NO 19:23 → T4-A 07-04 17:17
PROVIDERS: ADMIT Family Medicine; ATTEND Family Medicine
DX: T83.511A Infection and inflammatory reaction due to indwelling urethral catheter, initial encounter (principal); A41.9 Sepsis, unspecified organism; G92.8 Other toxic encephalopathy; R65.21 Severe sepsis with septic shock; R64 Cachexia; N30.00 Acute cystitis without hematuria; Z66 Do not resuscitate; Z51.5 Encounter for palliative care; I25.10 Atherosclerotic heart disease of native coronary artery without angina pectoris; I10 Essential (primary) hypertension; E11.9 Type 2 diabetes mellitus without complications; M19.90 Unspecified osteoarthritis, unspecified site; E66.9 Obesity, unspecified; G89.29 Other chronic pain; G47.33 Obstructive sleep apnea (adult) (pediatric); L89.150 Pressure ulcer of sacral region, unstageable; Y84.6 Urinary catheterization as the cause of abnormal reaction of the patient, or of later complication, without mention of misadventure at the time of the procedure; Z86.16 Personal history of COVID-19; Z28.21 Immunization not carried out because of patient refusal; Z95.1 Presence of aortocoronary bypass graft; Z68.22 Body mass index [BMI] 22.0-22.9, adult; Z88.2 Allergy status to sulfonamides; Z88.8 Allergy status to other drugs, medicaments and biological substances; Z91.041 Radiographic dye allergy status; Z88.0 Allergy status to penicillin; Z91.013 Allergy to seafood; Z79.899 Other long term (current) drug therapy; Z79.82 Long term (current) use of aspirin; Z79.02 Long term (current) use of antithrombotics/antiplatelets; Z79.51 Long term (current) use of inhaled steroids
CPT/HCPCS: 36415; 36416; 51702; 70450; 71045; 76770; 80053; 81003; 81015; 83036; 83605; 83690; 83735; 83880; 84100; 84145; 84443; 84484; 85025; 87040; 87086; 87149; 93005; 93010; 96365; 96366; 96368; 96375; 96376; G0378; J0692; J0696; J3010; J3370; J3475; J3490; J7050; J7120; Q9967

== ENCOUNTER 2021-07-04 19:08 | Inpatient (IN) | payer OTHER ==
[2021-07-04] MEDS ORDERED: Bisacodyl 10 MG SUPP PR PRN (20:10)
[2021-07-04] MEDS ORDERED: Ondansetron ODT 8 MG TAB PO PRN (20:10)
[2021-07-04] MEDS ORDERED: Lorazepam 2 MG/ML VIAL FS PRN (20:22)
[2021-07-04] MEDS ORDERED: Acetaminophen 650 MG Suppository PR PRN (20:23)
[2021-07-04] MEDS ORDERED: Morphine 20 MG/ML Oral Solution (ROXANOL) PO PRN (20:45)
[2021-07-04] MEDS: Scopolamine 1.5 mg/72 hour Patch TOP SCH (20:50)
[2021-07-04] MEDS ORDERED: Lorazepam 2 MG/ML VIAL FS SCH (21:00)
[2021-07-04] MEDS ORDERED: Morphine 10 MG/0.5 ML ORAL SYRINGE PO PRN (21:00)
[2021-07-04] MEDS ORDERED: Morphine 20 MG/ML Oral Solution (ROXANOL) PO SCH (21:00)
[2021-07-04] MEDS: Morphine 10 MG/0.5 ML ORAL SYRINGE PO SCH (21:36)
[2021-07-04] MEDS: Lorazepam 1 MG TAB PO PRN (23:30)
[2021-07-05] MEDS: Morphine 10 MG/0.5 ML ORAL SYRINGE PO SCH ×6 (00:35→22:17)
[2021-07-05] MEDS: Lorazepam 1 MG TAB PO PRN (04:23)
[2021-07-05] MEDS: Lorazepam 1 MG TAB PO SCH ×2 (08:32→22:16)
[2021-07-06] MEDS: Morphine 10 MG/0.5 ML ORAL SYRINGE PO SCH ×6 (01:26→21:05)
[2021-07-06] MEDS: Lorazepam 1 MG TAB PO SCH ×2 (08:22→21:04)
[2021-07-06] MEDS ORDERED: diphenhydrAMINE 50 MG/ML VIAL IM PRN (11:50)
[2021-07-06] MEDS ORDERED: diphenhydrAMINE 50 MG/ML VIAL IM SCH (12:00)
[2021-07-06] MEDS: Lorazepam 1 MG TAB PO PRN (13:02)
[2021-07-07] MEDS: Morphine 10 MG/0.5 ML ORAL SYRINGE PO SCH ×6 (01:34→21:11)
[2021-07-07] MEDS: Lorazepam 1 MG TAB PO SCH ×2 (09:30→21:06)
[2021-07-07] MEDS: Scopolamine 1.5 mg/72 hour Patch TOP SCH (21:06)
[2021-07-08] MEDS: Morphine 10 MG/0.5 ML ORAL SYRINGE PO SCH ×6 (00:38→20:09)
[2021-07-08] MEDS: Lorazepam 1 MG TAB PO SCH ×2 (08:57→20:08)
[2021-07-08] MEDS: Lorazepam 1 MG TAB PO PRN (09:54)
[2021-07-08] MEDS: Morphine 10 MG/0.5 ML ORAL SYRINGE PO PRN (09:56)
[2021-07-09] MEDS: Morphine 10 MG/0.5 ML ORAL SYRINGE PO SCH ×6 (00:18→20:36)
[2021-07-09] MEDS: Lorazepam 1 MG TAB PO SCH ×3 (07:53→16:57)
[2021-07-10] MEDS: Lorazepam 1 MG TAB PO SCH ×4 (00:38→16:49)
[2021-07-10] MEDS: Morphine 10 MG/0.5 ML ORAL SYRINGE PO SCH ×2 (00:38→05:22)
[2021-07-10] MEDS: Morphine 20 MG/ML Oral Solution (ROXANOL) PO SCH ×4 (08:55→20:58)
[2021-07-10] MEDS: Scopolamine 1.5 mg/72 hour Patch TOP SCH (20:59)
[2021-07-11] MEDS: Lorazepam 1 MG TAB PO SCH ×4 (02:20→21:23)
[2021-07-11] MEDS: Morphine 20 MG/ML Oral Solution (ROXANOL) PO SCH ×7 (02:28→23:41)
[2021-07-12] MEDS: Lorazepam 1 MG TAB PO SCH ×4 (02:50→21:43)
[2021-07-12] MEDS: Morphine 20 MG/ML Oral Solution (ROXANOL) PO SCH ×5 (04:22→18:51)
[2021-07-12] MEDS ORDERED: fentaNYL 50 mcg/hour Patch TD SCH (13:00)
[2021-07-12] MEDS: Nystatin 500,000 UNITS/5 ML UDCUP SSP SCH (21:43)
[2021-07-12] MEDS: Morphine 10 MG/0.5 ML ORAL SYRINGE PO PRN (23:49)
[2021-07-13] MEDS: Morphine 20 MG/ML Oral Solution (ROXANOL) PO SCH ×2 (00:15→04:42)
[2021-07-13] MEDS: Lorazepam 1 MG TAB PO SCH ×2 (02:27→08:31)
[2021-07-13] MEDS: Morphine 10 MG/0.5 ML ORAL SYRINGE PO PRN (04:19)
[2021-07-13] MEDS: Morphine 10 MG/0.5 ML ORAL SYRINGE PO SCH ×2 (07:13→10:57)
[2021-07-13] MEDS: Nystatin 500,000 UNITS/5 ML UDCUP SSP SCH (08:30)
[2021-07-13 08:47] VITALS: BP 125/75; TEMP 97.6
== END 2021-07-13 13:00 | disposition hospice, inpatient (51) | DRG 951 ==
LOC: T4-A 19:08
PROVIDERS: ADMIT Family Medicine; ATTEND Family Medicine
DX: Z51.5 Encounter for palliative care (principal); Z66 Do not resuscitate; A41.9 Sepsis, unspecified organism; R65.20 Severe sepsis without septic shock; T83.511A Infection and inflammatory reaction due to indwelling urethral catheter, initial encounter; N39.0 Urinary tract infection, site not specified; R64 Cachexia; I25.10 Atherosclerotic heart disease of native coronary artery without angina pectoris; I10 Essential (primary) hypertension; G89.29 Other chronic pain; E11.9 Type 2 diabetes mellitus without complications; J44.9 Chronic obstructive pulmonary disease, unspecified; F03.90 Unspecified dementia, unspecified severity, without behavioral disturbance, psychotic disturbance, mood disturbance, and anxiety; L89.152 Pressure ulcer of sacral region, stage 2; Y84.6 Urinary catheterization as the cause of abnormal reaction of the patient, or of later complication, without mention of misadventure at the time of the procedure; M19.90 Unspecified osteoarthritis, unspecified site; Z95.1 Presence of aortocoronary bypass graft; Z98.890 Other specified postprocedural states; Z88.2 Allergy status to sulfonamides; Z88.8 Allergy status to other drugs, medicaments and biological substances; Z91.041 Radiographic dye allergy status; Z88.0 Allergy status to penicillin; Z91.013 Allergy to seafood; Z79.899 Other long term (current) drug therapy; Z79.82 Long term (current) use of aspirin; Z79.02 Long term (current) use of antithrombotics/antiplatelets
CPT/HCPCS: J1200; J2060